=== PATIENT | female | born 1945 | race Caucasian/White ===

== ENCOUNTER → 2016-06-09 | Outpatient (CLI) | payer MEDICARE, OTHER ==
[~2016-06-09] MED LIST: ALEVE 220MG220 MG PO; ALREX 5 ML5 ML OP; ALREX 5 ML5 ML OU; ASPIRIN 81M81 MG/TA2 PO; B COMPLEX #11 TA1 PO; CALCIUM 600-D 61 TAB PO; CARDI-OMEGA1000 MG PO; MASON NATURAL1200 MG PO; MELATONIN1 MG PO; MULTI VITAMINS1 TAB PO; NORCO 325 MG-51 TAB PO; PAZEO2.5 ML OP; PREMPRO 0.3 MG-1 TAB PO; PROLIA60 MG/ML SC; RESTASIS 60VL OU; THE MEDICINE S200 M2 PO; ZOCOR 40MG40 MG PO; ZOFRAN ODT4 MG PO
== END ==
LOC: MC.RAD 08:51
DX: Z12.31 Encounter for screening mammogram for malignant neoplasm of breast (principal); D24.2 Benign neoplasm of left breast; D24.1 Benign neoplasm of right breast; Z98.890 Other specified postprocedural states

== ENCOUNTER → 2017-06-12 | Outpatient (CLI) | payer MEDICARE, OTHER | LOC: MC.RAD 12:50 | DX: Z12.31 Encounter for screening mammogram for malignant neoplasm of breast (principal); Z98.890 Other specified postprocedural states ==

== ENCOUNTER → 2018-07-03 | Outpatient (CLI) | payer MEDICARE, OTHER | LOC: MC.RAD 09:45 | DX: Z12.31 Encounter for screening mammogram for malignant neoplasm of breast (principal); Z98.890 Other specified postprocedural states ==